=== PATIENT | male | born 1935 ===

== ENCOUNTER 2021-10-02 19:20 | Emergency (ER) | payer MEDICARE, BC, MEDICAID ==
[2021-10-02 21:42] LABS: ANION GAP 7.3 meq/L (7-15)
== END 2021-10-02 22:15 ==
LOC: LL.ED 19:20
DX: S01.312A Laceration without foreign body of left ear, initial encounter (principal); S00.01XA Abrasion of scalp, initial encounter; E78.00 Pure hypercholesterolemia, unspecified; I10 Essential (primary) hypertension; Z87.891 Personal history of nicotine dependence; W05.0XXA Fall from non-moving wheelchair, initial encounter
CPT/HCPCS: 36415; 80053; 85025; 85610; 99284; 99285